=== PATIENT | female | born 1985 | race Two or more races ===

== ENCOUNTER 2021-07-07 21:33 | Emergency (ER) | payer SELFPAY ==
[~2021-07-07] VITALS: Ht 165.1 cm; Wt 68.1 kg
--- NOTE | 2021-07-07 21:52 | PHYS DOC ---
Past Medical History Past Surgical History: No Surgical History General Adult EDM: Chief Complaint: ABDOMINAL PAIN HPI: HPI: This is a 36-year-old female who presents with diffuse pelvic pain. She had one episode of light vaginal bleeding earlier today. She believes that she is . She has not had a positive home test, however. She has not missed a period. LMP was 06/15/2021. She has never previously had any regular menstrual cycle. She denies vaginal discharge or bleeding at present. No heavy bleeding, no passing of tissue or clots. No fevers or chills. She reports that she had nausea and vomiting x1 yesterday. Reports no nausea at present. She has not taken anything for this. She has one previous with one living child. No history of miscarriage. No history of ectopic or tubal . No history of abdominal or pelvic surgeries. She denies any severe pain at present. The pain is nonfocal, mostly midline/suprapubic and mid pelvic area. She is here requesting a test. Review of Systems: Review of Systems: Constitutional: Denies fever or chills. [] HENT: Denies nasal congestion or sore throat. [] Respiratory: Denies cough or shortness of breath. [] Cardiovascular: Denies chest pain or edema. [] GI: Mid lower abdominal/pelvic pain. One episodes of nausea and vomiting yesterday, none currently. Denies constipation or diarrhea : Denies urinary symptoms. One episode of light vaginal spotting, now resolved. Denies vaginal discharge, denies current bleeding. Musculoskeletal: Denies back pain or joint pain. [] Integument: Denies rash. [] Neurologic: Denies headache, dizziness or weakness Psychiatric: Denies depression or anxiety. [] Heart Score: C/O Chest Pain: No Risk Factors: Risk Factors: DM, Current or recent (<one month) smoker, HTN, HLP, family history of CAD, obesity. Risk Scores: Score 0 - 3: 2.5% MACE over next 6 weeks - Discharge Home Score 4 - 6: 20.3% MACE over next 6 weeks - Admit for Clinical Observation Score 7 - 10: 72.7% MACE over next 6 weeks - Early Invasive Strategies Physical Exam: PE: Constitutional: Well developed, well nourished, no acute distress, non-toxic appearance. [] HENT: Normocephalic, atraumatic, no facial trauma or swelling noted. Mucous membranes are moist Eyes: Conjunctiva normal, no discharge. Sclera are anicteric Neck: Normal range of motion, no tenderness, supple, no stridor. [] Cardiovascular:Heart rate regular rhythm, +2 radial and +2 posterior tibial pulses bilaterally Lungs & Thorax: Bilateral breath sounds clear to auscultation [] Abdomen: Abdomen is soft, nondistended, very minimal suprapubic tenderness to palpation, mild right and left lower quadrant tenderness to palpation. Inconsistent and mild voluntary guarding, no rebound tenderness, no rigidity, no involuntary guarding, normal bowel sounds, no CVA tenderness, no flank abdominal ecchymoses. No palpable pulsatile mass. No palpable mass organomegaly. Skin: Warm, dry, no erythema, no rash. [] Back: No tenderness, no CVA tenderness. [] Extremities: No tenderness, no cyanosis, no clubbing, ROM intact, no edema. No calf tenderness. Neurologic: Alert and oriented X 3, normal motor function, normal sensory function, no focal deficits noted. [] Psychologic: Affect normal, judgement normal, mood normal. [] Current Patient Data: Vital Signs: Vital Signs Date Time Temp Pulse Resp B/P (MAP) Pulse Ox O2 Delivery O2 Flow Rate FiO2 07/07/21 21:47 98.1 90 16 140/87 (104) 100 Room Air 98.1 EKG: EKG: [] Radiology/Procedures: Radiology/Procedures: IMAGING REPORT Signed PATIENT: WILFREDO BOB ACCOUNT: [id number] : 1985 LOCATION: ER AGE: 36 SEX: F EXAM STATUS: REG ER ORD. PHYSICIAN: CHEVY PEARSON DO REASON: pelvic pain PROCEDURE: PELVIS W/TV US PELVIS W/TV: 07/07/2021 11:22 PM INDICATION: 36 years old Female. Pelvic pain. COMPARISON: None. TECHNIQUE: Transabdominal sonographic evaluation of the pelvis was performed. Grayscale, color Doppler and spectral waveform analysis were utilized. FINDINGS: UTERUS: Size: 8.4 x 5.4 x 3.2 cm. Masses: None. Endometrium: 7 mm. No suspicious vascularity is identified. RIGHT OVARY: 3.3 x 1.9 x 1.8 cm. Ovary is normal in appearance. LEFT OVARY: 4.1 x 2.9 x 2.7 cm. There is a simple left ovarian cyst measuring 2.6 x 1.5 x 2.1 cm suggestive of dominant follicle. Arterial and venous waveform are identified within the ovaries bilaterally at the time of imaging. FREE FLUID: None. URINARY BLADDER: Unremarkable. IMPRESSION: Perfusion is noted to the ovaries bilaterally at the time of imaging. Dominant follicle in the left ovary measures 2.6 cm. Electronically signed by: Krystle Mcguire MD (07/08/2021 12:17 AM) [facility] DICTATED and SIGNED BY: KRYSTLE MCGUIRE MD DATE: 07/08/21 [id number] 0 Course & Med Decision Making: Course & Med Decision Making Pertinent Labs and Imaging studies reviewed. (See chart for details) Patient initially declined anything for pain. Nausea is absent. She is given p.o. Tylenol here. She reports improvement of pain. UCG is negative. UA is unremarkable, appears to be contaminated, she denies urinary symptoms. Ultrasound of the pelvis is unremarkable. I discussed the findings, differential diagnosis and plan of care with her. She asked if it is normal to occasionally have irregular menses or have mild spotting on occasion, and I explained that this may be very normal. I told her to follow-up with her primary care physician and gynecology services if symptoms persist or worsen. Return precautions are given. Dragon Disclaimer: Jessica Disclaimer: This electronic medical record was generated, in whole or in part, using a voice recognition dictation system. Departure Departure Impression: Primary Impression: Pelvic pain Additional Impression: Pre-menstrual syndrome Disposition: 01 HOME / SELF CARE / HOMELESS Condition: STABLE Patient Instructions: Pelvic Pain, Female, [id number], Premenstrual Syndrome Additional Instructions: Return to the ER for more severe or localized pain, temperature 100.4 or higher, uncontrolled vomiting, dehydration or other concerns. You may take Tylenol or ibuprofen for pain. Follow-up with your primary care doctor. CHEVY PEARSON DO Jul 07, 2021 21:52
[2021-07-07 22:08] LABS: COLOR,URINE YELLOW
[2021-07-07 22:09] LABS: CLARITY,URINE HAZY
[2021-07-07 22:10] LABS: BILIRUBIN,URINE NEGATIVE (NEG); NITRITE,URINE NEGATIVE (NEG); PH,URINE 5.5 (<5.0-8.0); PROTEIN,URINE NEGATIVE (NEG-TRACE); UROBILINOGEN,URINE 0.2 mg/dL (0.2 mg/dL)
[2021-07-07 22:14] LABS: AMORPHOUS SEDIMENT,UR PRESENT /HPF; BACTERIA,URINE FEW /HPF (0-FEW); RBC,URINE OCC /HPF (0-2)
[2021-07-07 22:33] LABS: BASO % 1 % (0-3); EOS % 1 % (0-3); HEMATOCRIT 40.1 % (36.0-47.0); HEMOGLOBIN 13.4 g/dL (12.0-15.5); LYMPH % 29 % (24-48); MEAN CORPUSCULAR HEMOGLOBIN 31 pg (25-35); MEAN CORPUSCULAR HGB CONC 33 g/dL (31-37); MEAN CORPUSCULAR VOLUME 92 fL (79-100); MONO # 0.5 x10^3/uL (0.0-1.1); MONO % 7 % (0-9); NEUT # 4.3 x10^3/uL (1.8-7.7); NEUT % 63 % (31-73); PLATELET COUNT 190 x10^3/uL (140-400); RED BLOOD COUNT 4.36 x10^6/uL (3.50-5.40); RED CELL DISTRIBUTION WIDTH 12.9 % (11.5-14.5); WHITE BLOOD COUNT 6.9 x10^3/uL (4.0-11.0)
[2021-07-07 22:40] LABS: CALCIUM 8.8 mg/dL (8.5-10.1); CREATININE 0.6 mg/dL (0.6-1.0); GFR 114.4; POTASSIUM 4.1 mmol/L (3.5-5.1)
[2021-07-07 22:45] LABS: ALBUMIN 3.9 g/dL (3.4-5.0); ALBUMIN/GLOBULIN RATIO 1.1 (1.0-1.7); TOTAL BILIRUBIN 0.3 mg/dL (0.2-1.0); TOTAL PROTEIN 7.6 g/dL (6.4-8.2)
[2021-07-07] MEDS ORDERED: IV NORMAL SALINE 1000ML BAG 1,000 ML IV ONE (23:00)
[2021-07-07] MEDS ORDERED: ACETAMINOPHEN 500 MG TABLET PO ONE (23:30)
[2021-07-08 00:06] VITALS: BP 126/66
--- NOTE | 2021-07-08 00:20 | RAD ---
US PELVIS W/TV: 07/07/2021 11:22 PM INDICATION: 36 years old Female. Pelvic pain. COMPARISON: None. TECHNIQUE: Transabdominal sonographic evaluation of the pelvis was performed. Grayscale, color Doppl er and spectral waveform analysis were utilized. FINDINGS: UTERUS: Size: 8.4 x 5.4 x 3.2 cm. Masses: None. Endometrium: 7 mm. No suspicious vascularity is identified. RIGHT OVARY: 3.3 x 1.9 x 1.8 cm. Ovary is normal in appearance. LEFT OVARY: 4.1 x 2.9 x 2.7 cm. There is a simple left ovarian cyst measuring 2.6 x 1.5 x 2.1 cm sug gestive of dominant follicle. Arterial and venous waveform are identified within the ovaries bilaterally at the time of imaging. FREE FLUID: None. URINARY BLADDER: Unremarkable. IMPRESSION: Perfusion is noted to the ovaries bilaterally at the time of imaging. Dominant follicle in the left ovary measures 2.6 cm. Electronically signed by: Caitlyn Mcguire MD (07/08/2021 12:17 AM) [facility]KKIE
== END 2021-07-08 00:38 | disposition home or self-care (01) ==
LOC: ER 21:33
DX: N94.3 Premenstrual tension syndrome (principal); R10.2 Pelvic and perineal pain
CPT/HCPCS: 36415; 76830; 76856; 80053; 81001; 81025; 83690; 85025; 87086; 96360; 96361; 99285; J7030